=== PATIENT | female | born 1985 | race Caucasian/White ===

== ENCOUNTER 2021-06-28 09:40 | Emergency (ER) | payer BC, OTHER, SELFPAY ==
[2021-06-28 09:50] VITALS: BP 120/67; PULSE 60; RESP 16; TEMP 36.6; O2SAT 100
--- NOTE | 2021-06-28 11:42 | ED.GENADULT ---
HPI - General Adult General Chief complaint: Unspecified Stated complaint: Wants test Time Seen by Provider: 06/28/21 09:50 Source: patient Mode of arrival: ambulatory Limitations: no limitations History of Present Illness HPI narrative: Patient is a 36-year-old female G2, P1 presents with chief complaint of positive home test. Patient reports that she has taken 2+ home test so she called the hospital blanching machine operator to asked what she should do next and was told that she needed to present to the emergency room. Patient denies any complaints such as vaginal bleeding, abdominal pain, vomiting, shortness of breath, chest pain or any other emergent symptoms. Patient states that she does not presently have an STORE COORDINATOR. Patient reports that her last menstrual cycle was in April Related Data Allergies Allergy/AdvReac Type Severity Reaction Status Date / Time No Known Allergies Allergy Verified 06/28/21 09:47 Review of Systems Review of Systems: CONSTITUTIONAL: Denies fever, chills, or sweats. EYES: Denies visual changes, redness, or discharge. ENT: Denies rhinorrhea, congestion, sore throat, or otalgia. CARDIOVASCULAR: Denies chest pain, palpitations, or edema. RESPIRATORY: Denies cough or dyspnea. GASTROINTESTINAL: Denies abdominal pain, nausea, vomiting, or diarrhea. GENITOURINARY: Denies dysuria or hematuria. SKIN: Denies rash or itching. MUSCULOSKELETAL: Denies back pain, joint pain, or myalgia. NEUROLOGIC: Denies headache, numbness, dizziness, or weakness. PSYCHIATRIC: Denies anxiety or depression. Exam Narrative: GENERAL: Well-appearing, well-nourished, and in no acute distress. HEAD: Normocephalic, atraumatic. EYES: PERRLA and EOMI. ENT: Nares clear, no rhinorrhea or epistaxis. Mucous membranes moist. Oropharynx without tonsillar hypertrophy exudate or other lesions. Bilateral TMs pearly martins nonbulging NECK: Supple. No adenopathy or masses. CHEST: Clear to auscultation. No respiratory distress. No wheezes rales or rhonchi HEART: Regular rate and rhythm. No murmur heard. Normal peripheral pulses. ABDOMEN: Soft, nontender, nondistended, normal active bowel sounds. EXTREMITIES: Normal range of motion. No edema. SKIN: Warm, dry, no rash. NEURO: No focal deficits. Alert and oriented x3. PSYCH: Normal mood and affect. Course Vital Signs Vital signs: Vital Signs Temperature 98 F 06/28/21 09:50 Pulse Rate 60 06/28/21 09:50 Respiratory Rate 16 06/28/21 09:50 Blood Pressure 120/67 06/28/21 09:50 Pulse Oximetry 100 06/28/21 09:50 Temperature 98 F 06/28/21 09:50 Pulse Rate 60 06/28/21 09:50 Respiratory Rate 16 06/28/21 09:50 Blood Pressure 120/67 06/28/21 09:50 Pulse Oximetry 100 06/28/21 09:50 Medical Decision Making MDM Narrative Medical decision making narrative: Patient does not have any complaints and was directed to the ER by the blanching machine operator when she was attempting to receive guidance on how to move forward with scheduling an OB appointment after having a positive home test. Patient will be referred to Dr. Cisneros who is on-call today for further evaluation and management of her . Patient has been instructed to return to the emergency department if she develops any emergent symptoms including but not limited to pelvic pain, vaginal bleeding, chest pain, shortness of breath or any other emergent symptoms. Vital Signs Vital Signs: Vital Signs Temperature 98 F 06/28/21 09:50 Pulse Rate 60 06/28/21 09:50 Respiratory Rate 16 06/28/21 09:50 Blood Pressure 120/67 06/28/21 09:50 Pulse Oximetry 100 06/28/21 09:50 Temperature 98 F 06/28/21 09:50 Pulse Rate 60 06/28/21 09:50 Respiratory Rate 16 06/28/21 09:50 Blood Pressure 120/67 06/28/21 09:50 Pulse Oximetry 100 06/28/21 09:50 Lab Data Labs: UCG Bedside Result Positive Reference Range: Negative
== END 2021-06-28 11:53 | disposition home or self-care (01) ==
PROVIDERS: Emergency Provider Emergency Medicine
DX: Z32.01 Encounter for pregnancy test, result positive (principal)
CPT/HCPCS: 81025; 99283